=== PATIENT | female | born 1950 | race Caucasian/White ===

== ENCOUNTER 2024-09-22 09:29 | Day surgery (SDC) | payer MEDICARE, OTHER ==
[2024-09-22] MEDS ORDERED: Midazolam 1 MG/ML 2 ML SDV IV ONE (09:30)
[2024-09-22] MEDS ORDERED: Propofol 200 MG/20 ML SDV IV ONE (09:30)
[2024-09-22] MEDS ORDERED: Lidocaine 2% 100 MG/5 ML Syringe IVPUSH ONE (09:30)
[2024-09-22] MEDS ORDERED: Ketamine 500 mg/10 ML MDV IV ONE (09:30)
[2024-09-22] MEDS ORDERED: Sodium Chloride 0.9% 10 ML Syringe FLUSH PRN (09:30)
[2024-09-22] MEDS: Lactated Ringers 1,000 ML IV SCH (10:46)
[2024-09-22] MEDS: Simethicone Drops 40 MG/0.6 ML 30 ML Bottle ONE (10:47)
== END 2024-09-22 12:23 | disposition home or self-care (01) ==
LOC: FB.SDS 09:29
PROVIDERS: ATTEND Surgery
DX: K21.00 Gastro-esophageal reflux disease with esophagitis, without bleeding (principal); K29.50 Unspecified chronic gastritis without bleeding; K31.89 Other diseases of stomach and duodenum
CPT/HCPCS: 00731; 43239; 88305; 88342; 99100; A9270; J2250; J2704; J3490; J7120

== ENCOUNTER 2025-07-31 12:44 | Emergency (ER) | payer MEDICARE | END 2025-07-31 14:07 | disposition home or self-care (01) | LOC: FB.ED 12:44 | DX: S39.012A Strain of muscle, fascia and tendon of lower back, initial encounter (principal); S09.90XA Unspecified injury of head, initial encounter; E78.00 Pure hypercholesterolemia, unspecified; I12.9 Hypertensive chronic kidney disease with stage 1 through stage 4 chronic kidney disease, or unspecified chronic kidney disease; N18.9 Chronic kidney disease, unspecified; E66.9 Obesity, unspecified; K21.9 Gastro-esophageal reflux disease without esophagitis; Z79.899 Other long term (current) drug therapy; Z91.048 Other nonmedicinal substance allergy status; Z88.8 Allergy status to other drugs, medicaments and biological substances; W01.198A Fall on same level from slipping, tripping and stumbling with subsequent striking against other object, initial encounter | CPT/HCPCS: 70450; 72100; 99284; A9270 ==